=== PATIENT | female | born 1955 ===

== ENCOUNTER 2017-08-26 08:19 | Outpatient (CLI) | payer OTHER ==
[~2017-08-26] VITALS: Ht 157.5 cm; Wt 62.6 kg
[2017-08-26] MEDS ORDERED: LIPO-FLAVONOID1 EACH PO (09:20)
== END 2017-08-26 08:40 | disposition home or self-care (01) ==
LOC: OFIC 805 08:19
DX: R42 Dizziness and giddiness (principal); H90.3 Sensorineural hearing loss, bilateral; J31.0 Chronic rhinitis